=== PATIENT | female | born 1985 ===

== ENCOUNTER 2019-09-15 05:30 | Inpatient (IN) | payer MEDICAID, OTHER, SELFPAY ==
[2019-09-19] MEDS ORDERED: Bupivacaine 0.25% HCL 30 ML VIAL ONE (09:47)
[2019-09-19] MEDS ORDERED: Ibuprofen 800 MG TAB PO PRN (18:45)
[2019-09-19] MEDS ORDERED: NS / Oxytocin 40 units/1000ml 1,000 ML IV PRN (18:45)
[2019-09-19] MEDS ORDERED: Promethazine HCl 25 MG/ML VIAL IM PRN ×2 (18:45→22:22)
[2019-09-19] MEDS ORDERED: Ondansetron PF 4 MG/2 ML Vial IVP PRN ×2 (18:45→22:22)
[2019-09-19] MEDS ORDERED: Butorphanol Tartrate 1 MG/ML VIAL SLOW IVP PRN (18:45)
[2019-09-19] MEDS ORDERED: Carboprost 250 MCG/ML AMP IM PRN (18:45)
[2019-09-19] MEDS ORDERED: HYDROcodone/Acetaminophen 5/325 mg Tablet PO PRN (18:45)
[2019-09-19] MEDS ORDERED: Acetaminophen 500 MG TAB PO PRN (18:45)
[2019-09-19] MEDS ORDERED: Misoprostol 200 MCG TAB PR PRN (18:45)
[2019-09-19] MEDS ORDERED: Lidocaine 1% (PF) 30 ML VIAL SC PRN (18:45)
[2019-09-19] MEDS ORDERED: Diphenoxylate HCl/Atropine Tablet PO PRN (18:45)
[2019-09-19] MEDS ORDERED: hydrALAZINE 20 MG/ML VIAL SLOW IVP PRN (18:45)
[2019-09-19 19:02] VITALS: BMI 21.6
[2019-09-19] MEDS: Lactated Ringer's 1,000 ML IV SCH ×2 (19:02→22:20)
[2019-09-19 19:12] LABS: Hemoglobin 12.7 g/dL (12.0-16.0); Mean Corpuscular Hemoglobin 31.9 pg (27.0-31.0); Mean Corpuscular Volume 91.2 fL (78.0-98.0); Mean Platelet Volume 8.6 fL (7.4-10.4); Platelet Count 201 thou/uL (130-400); RBC Distribution Width 11.8 % (11.5-14.5); Red Blood Cell (RBC) Count 3.98 mill/uL (4.20-5.40)
[2019-09-19] MEDS ORDERED: Penicillin G Potassium 5 MILL.UNITS in Sodium Chloride 0.9% 100 ML IVPB SCH (19:15)
[2019-09-19] MEDS ORDERED: NS w/ Oxytocin 10 units 500 ML IV SCH (19:15)
[2019-09-19 19:45] LABS: HBSAg Index 0.29 S/CO (0-0.99); Hep B Surf Ag Non-Reactive S/CO (NonReactive); Syphilis Antibody Nonreactive (Nonreactive); Syphilis Antibody Index 0.05 S/CO (<1.00 Non-Reactive)
[2019-09-19] MEDS: CEFAZOLIN 1 GM in Sodium Chloride 0.9% 100 ML IVPB SCH (20:18)
[2019-09-19] MEDS ORDERED: Fentanyl 4 mcg/Bup 0.1% Cadd 100 ML ONE (21:41)
[2019-09-19] MEDS ORDERED: Lactated Ringer's 500 ML IV PRN (22:22)
[2019-09-19] MEDS ORDERED: EPHEDRINE 25 MG/5 ML SYRINGE SLOW IVP PRN (22:22)
[2019-09-19] MEDS ORDERED: diphenhydrAMINE 50 MG/ML VIAL IVP PRN (22:22)
[2019-09-19] MEDS ORDERED: Naloxone HCl 0.4 mg/ml Vial IVP PRN ×2 (22:22)
[2019-09-19] MEDS ORDERED: Acetaminophen 325 MG TAB PO PRN (22:22)
[2019-09-19] MEDS ORDERED: Fentanyl 4 mcg/Bupivacaine 0.1% Cassette 100 ML EPIDURAL SCH (22:30)
[2019-09-19] MEDS ORDERED: Communication Order-Pharmacy FS SCH (22:30)
[2019-09-20] MEDS ORDERED: Penicillin G 2.5 MILL.units 2.5 MILL.UNITS in Premix Bag 1 BAG IVPB SCH (01:00)
--- NOTE | 2019-09-20 04:17 | PDOC.OPDEL ---
OB Operative/Delivery Note Delivery Dr/Surgeon: Yulisa Pre-Delivery Diagnosis: elective induction Procedure/Post Delivery Dx: spontaneous vaginal delivery Weeks gestation: 40 Anesthesia: epidural - Findings A Sex: female Weight: 7 lb 2 oz - 1 min: 8 - 5 min: 9 - Additional Findings/Plan Placenta delivered: spontaneous Repaired Obstetrical Laceration: 2nd degree Estimated blood loss: 175 ml qbl Post delivery plan: routine recovery
[2019-09-20] MEDS ORDERED: Milk Of Magnesia 30 ML UDCUP PO PRN (04:18)
[2019-09-20] MEDS ORDERED: Bisacodyl 10 MG SUPP PR PRN (04:18)
[2019-09-20] MEDS ORDERED: Lanolin Ointment 7 GM TUBE TOP PRN (04:18)
[2019-09-20] MEDS ORDERED: hydrALAZINE 20 MG/ML VIAL SLOW IVP PRN (04:18)
[2019-09-20] MEDS ORDERED: diphenhydrAMINE 25 MG CAP PO PRN (04:18)
[2019-09-20] MEDS ORDERED: Benzocaine-Menthol 82.5 ML CAN TOP PRN (04:18)
[2019-09-20] MEDS ORDERED: Preparation H Ointment 28 GM TUBE PR PRN (04:18)
[2019-09-20] MEDS ORDERED: NS / Oxytocin 40 units/1000ml 1,000 ML IV SCH (04:30)
[2019-09-20] MEDS: Ibuprofen 800 MG TAB PO SCH ×3 (06:05→21:42)
[2019-09-20] MEDS: Ferrous Sulfate 325 MG TAB PO SCH ×2 (07:59→17:30)
[2019-09-20] MEDS: Docusate Calcium (SURFAK) 240 MG CAP PO SCH ×2 (07:59→21:42)
[2019-09-20] MEDS: Prenatal Vitamin 1 TAB PO SCH (07:59)
[2019-09-20] MEDS ORDERED: Adacel (T-DAP) 0.5 ML SYRINGE IM ONE (09:00)
[2019-09-20] MEDS: traMADol HCl 50 MG TAB PO PRN (23:50)
[2019-09-21] MEDS: Ibuprofen 800 MG TAB PO SCH ×3 (04:58→20:26)
--- NOTE | 2019-09-21 08:04 | PDOC.PP ---
Post Progress Note Post Day #: 1 PO intake tolerated: yes Flatus: yes Ambulation: yes Vital Signs (12 hours) Temp Pulse Resp BP Pulse Ox 09/21/19 04:55 98.2 F 65 18 104/67 09/20/19 23:45 98.1 F 52 L 18 107/54 L 09/20/19 20:05 96 Weight Admit Weight 130 lb Weight 130 lb Result Diagrams: 09/19/19 18:50 Additional Labs: Post Labs Blood Type A POSITIVE 09/19/19 19:52 Hep Bs Antigen Non-Reactive S/CO (NonReactive) 09/19/19 18:50 - Assessment/Plan Doing well post day1. If feedings going well, discharge home. f/u 6 weeks.
[2019-09-21] MEDS: CEFAZOLIN 1 GM in Sodium Chloride 0.9% 100 ML IVPB SCH (08:19)
[2019-09-21] MEDS: Ferrous Sulfate 325 MG TAB PO SCH ×2 (08:19→17:00)
[2019-09-21] MEDS: Lactated Ringer's 1,000 ML IV SCH (08:19)
[2019-09-21] MEDS: Docusate Calcium (SURFAK) 240 MG CAP PO SCH ×2 (08:23→20:26)
[2019-09-21] MEDS: Prenatal Vitamin 1 TAB PO SCH (08:23)
[2019-09-21] MEDS: traMADol HCl 50 MG TAB PO PRN ×2 (13:08→20:26)
[2019-09-22] MEDS: Ibuprofen 800 MG TAB PO SCH (05:02)
[2019-09-22] MEDS: traMADol HCl 50 MG TAB PO PRN (06:07)
[2019-09-22 08:18] VITALS: BP 113/62; TEMP 97.6
[2019-09-22] MEDS: Docusate Calcium (SURFAK) 240 MG CAP PO SCH (08:21)
[2019-09-22] MEDS: Prenatal Vitamin 1 TAB PO SCH (08:21)
[2019-09-22] MEDS: Ferrous Sulfate 325 MG TAB PO SCH (08:23)
== END 2019-09-22 13:45 | disposition home or self-care (01) | DRG 807 ==
LOC: L&D 09-19 17:44 → 3SW 09-20 06:32
PROVIDERS: ADMIT Obstetrics & Gynecology; ATTEND Obstetrics & Gynecology
PROC: 10E0XZZ Delivery of Products of Conception, External Approach (ICD-10-PCS; principal; 2019-09-20)
PROC: 0KQM0ZZ Repair Perineum Muscle, Open Approach (ICD-10-PCS; 2019-09-20)
DX: O48.0 Post-term pregnancy (principal); Z37.0 Single live birth; O70.1 Second degree perineal laceration during delivery; Z3A.40 40 weeks gestation of pregnancy
CPT/HCPCS: 36415; 51702; 85027; 86780; 86850; 86900; 86901; 87340; J0690; J2590; J3490; S0020